=== PATIENT | male | born 1970 | race African-American/Black ===

== ENCOUNTER 2016-12-29 10:56 | Emergency (ER) | payer OTHER ==
[~2016-12-29] VITALS: Ht 162.6 cm; Wt 65.8 kg
== END 2016-12-29 13:04 | disposition home or self-care (01) ==
LOC: CED 10:56
DX: J06.9 Acute upper respiratory infection, unspecified (principal); K12.2 Cellulitis and abscess of mouth; I10 Essential (primary) hypertension; F17.200 Nicotine dependence, unspecified, uncomplicated
CPT/HCPCS: 36415; 96365; 96375; 99284; J0696; J2930